=== PATIENT | male | born 1960 | race Caucasian/White ===

== ENCOUNTER 2017-11-29 10:46 | Emergency (ER) | payer BC, OTHER ==
[2017-11-29] MEDS ORDERED: Ketorolac Tromethamine 30 MG/ML VIAL ONE (11:08)
== END 2017-11-29 11:36 | disposition home or self-care (01) ==
LOC: SCSER 10:46
DX: S16.1XXA Strain of muscle, fascia and tendon at neck level, initial encounter (principal); S46.911A Strain of unspecified muscle, fascia and tendon at shoulder and upper arm level, right arm, initial encounter; F17.210 Nicotine dependence, cigarettes, uncomplicated; X58.XXXA Exposure to other specified factors, initial encounter
CPT/HCPCS: 93005; 96372; J1885